=== PATIENT | male | born 1985 | race American Indian/Alaskan Native ===

== ENCOUNTER 2017-05-15 09:58 | Emergency (ER) | payer SELFPAY ==
[2017-05-15 10:50] VITALS: BP 163/109
[2017-05-15] MEDS ORDERED: TORADOL IM ONE (11:01)
[2017-05-15] MEDS ORDERED: TORADOL ONE (11:01)
== END 2017-05-15 11:15 | disposition left against medical advice (07) ==
LOC: ED 09:58
DX: R10.9 Unspecified abdominal pain (principal); Z53.21 Procedure and treatment not carried out due to patient leaving prior to being seen by health care provider
CPT/HCPCS: J1885

== ENCOUNTER 2017-06-14 03:53 | Emergency (ER) | payer OTHER ==
[2017-06-14] MEDS ORDERED: TORADOL IV ONE (04:18)
[2017-06-14] MEDS ORDERED: ZOFRAN IV ONE ×2 (04:18→06:16)
--- NOTE | 2017-06-14 05:26 | Cat Scan Report ---
FINAL REPORT PROCEDURE: CT ABDOMEN PELVIS WO CON TECHNIQUE: Computerized axial tomography of the abdomen and pelvis was performed without intravenous contrast. This study is performed without intravascular contrast material and its sensitivity for abdominal and pelvic pathology, including neoplasms, inflammation, abscess, free fluid, thrombosis, arterial dissection and infarction, is reduced compared with a contrast enhanced study. HISTORY: flank pain/frequent kidney stones COMPARISON: No prior studies are available for comparison. FINDINGS: Visualized lower thorax: No significant abnormality. Liver: Normal size and attenuation. Spleen: Normal size and attenuation. Gallbladder and biliary system: Normal. Pancreas: Normal. Adrenals: Normal. Kidneys: Both kidneys have normal size. Mild left hydronephrosis and hydroureter down to a 4 millimeter stone in the mid left ureter. Bilateral renal calculi measuring between 1 and 5 millimeters are noted. The right collecting system is normal.. GI tract: No obstruction, no ileus or enteritis. The cecum, appendix and colon are normal. Mild diverticular changes in the colon.. Lymph nodes and mesentery: Normal. Vasculature: Normal. Bladder: Normal. Reproductive organs: Normal. Peritoneum: No free fluid. Musculoskeletal structures: No significant abnormality. Other: None. IMPRESSION: Mild left hydronephrosis and hydroureter down to a 4 millimeter stone in the mid left ureter. Bilateral renal calculi are identified..
[2017-06-14] MEDS ORDERED: MORPHINE ONE (06:06)
[2017-06-14] MEDS ORDERED: NACL 0.9% 1000 ML 1,000 ML ONE (06:06)
[2017-06-14] MEDS ORDERED: MORPHINE IV ONE (06:16)
[2017-06-14] MEDS ORDERED: NACL 0.9% 1000 ML 1,000 ML IV ONE ×2 (06:16→07:57)
[2017-06-14] MEDS ORDERED: DILAUDID IV ONE (06:53)
--- NOTE | 2017-06-14 06:58 | Emergency Department Report ---
HPI - General Chief Complaint: Abdominal Pain Time Seen by Provider: 06/14/17 06:46 - HPI HPI: 31-year-old Afro-[place] male presents to the emergency department with complaint of left-sided back and flank pain this been going on since this morning that he believes is a kidney stone. He has a history of frequent kidney stones but has never required lithotripsy or a stent placed. He has not taken anything for his symptoms prior to presentation. He has some slight nausea secondary to the intense pain but has not had any vomiting. No fever, dysuria, discharge. He does not have a primary care physician or urologist. No recent travel or sick contacts at home. ED Past Medical Hx - Past Medical History Previous Medical History?: Yes Hx Kidney Stones: Yes - Surgical History Past Surgical History?: No - Social History Smoking Status: Never Smoker Substance Use Type: None - Medications Home Medications: Home Medications Medication Instructions Recorded Confirmed Last Taken Type Tamsulosin [Flomax] 0.4 mg PO QDAY #5 cap 06/14/17 Unknown Rx oxyCODONE /ACETAMINOPHEN [Percocet 1 tab PO Q6HR PRN #10 tablet 06/14/17 Unknown Rx 5/325] ED Review of Systems ROS: Stated complaint: KIDNEY STONE Other details as noted in HPI Comment: All other systems reviewed and negative Constitutional: denies: chills, fever Eyes: denies: eye pain, eye discharge, vision change ENT: denies: ear pain, throat pain Respiratory: denies: cough, shortness of breath, wheezing Cardiovascular: denies: chest pain, palpitations Gastrointestinal: abdominal pain (flank pain), nausea. denies: vomiting Genitourinary: denies: dysuria, discharge Musculoskeletal: back pain. denies: arthralgia Skin: denies: rash, lesions Neurological: denies: headache, weakness, paresthesias Physical Exam - Physical Exam Vital Signs: Vital Signs 06/14/17 06/14/17 04:13 04:32 Temperature 98.0 F Pulse Rate 62 Respiratory 18 20 Rate Blood Pressure 169/110 O2 Sat by Pulse 100 Oximetry Physical Exam: GENERAL: The patient is well-developed well-nourished. HENT: Normocephalic. Atraumatic. Patient has moist mucous membranes. EYES: Extraocular motions are intact. Pupils equal reactive to light bilaterally. NECK: Supple. Trachea is midline. CHEST/LUNGS: Clear to auscultation. There is no respiratory distress noted. HEART/CARDIOVASCULAR: Regular. There is no tachycardia. There is no gallop rub or murmur. ABDOMEN: Abdomen is soft. Unable to reproduce tenderness to palpation. No guarding or rebound tenderness. Patient has normal bowel sounds. There is no abdominal distention. SKIN: Skin is warm and dry. NEURO: The patient is awake, alert, and oriented. The patient is cooperative. The patient has no focal neurologic deficits. The patient has normal speech and gait. MUSCULOSKELETAL: There is no tenderness or deformity. There is no limitation range of motion. There is no evidence of acute injury. BACK: Positive left-sided CVA tenderness to palpation. No midline tenderness palpation or deformity or step-off. ED Course Vital Signs 06/14/17 06/14/17 04:13 04:32 Temperature 98.0 F Pulse Rate 62 Respiratory 18 20 Rate Blood Pressure 169/110 O2 Sat by Pulse 100 Oximetry ED Medical Decision Making - Radiology Data Radiology results: report reviewed CT of the abdomen and pelvis shows mild hydronephrosis and hydroureter on the left side down to a 4 mm stone in the mid left ureter. Bilateral intrarenal stones. - Medical Decision Making 31-year-old male presents with left-sided back and flank pain and history of kidney stones. CT shows a 4 mm ureterolithiasis with mild hydronephrosis. Urinalysis does not show any significant hematuria or any urinary tract infection. He has greater than a 90% chance of passing the stone. Patient was given pain medication in the emergency department and has some improvement. Vital signs stable. His records. He was discharged home with a strainer, Flomax, pain medication and a referral for urology. He will return to the ER with any development of fever, intractable vomiting, worsening of his pain, inability to pass the stone or any acute distress. - Differential Diagnosis nephrolithiasis, hydronephrosis, pyelonephritis, UTI Critical Care Time: No Critical care attestation.: If time is entered above; I have spent that time in minutes in the direct care of this critically ill patient, excluding procedure time. ED Disposition Clinical Impression: Kidney stone on left side, Ureterolithiasis, Flank pain Disposition: - TO HOME OR SELFCARE Is pt being admited?: No Condition: Stable Instructions: Kidney Stones (ED), Renal Colic (ED), How to Strain Your Urine ( ED) Additional Instructions: Please strain your urine to see if you can catch the kidney stone. I have given you a referral for a local urologist, Dr. Villa, to follow up regarding your kidney stone. Return to the emergency department with any intractable vomiting, development of fever, or inability to pass the stone in the next few days. You have been prescribed a medication that is sedating and therefore should not be taken prior to driving, working, and responsible for children and in no way should be mixed with alcohol of any quantity. Prescriptions: oxyCODONE /ACETAMINOPHEN [Percocet 5/325] 1 tab PO Q6HR PRN #10 tablet PRN Reason: Pain Tamsulosin [Flomax] 0.4 mg PO QDAY #5 cap Referrals: PRIMARY CARE, [Primary Care Provider] - 3-5 Days CHLOE VILLA MD [Staff Physician] - 3-5 Days Time of Disposition: 08:34
[2017-06-14 07:34] VITALS: BP 137/84
[2017-06-14 08:10] LABS: Bilirubin,Urine NEG (Negative); Blood,Urine LG (Negative); Ketones,Urine NEG (Negative); Leukocyte Esterase,Urine NEG (Negative); Mucus,Urine FEW /HPF; Nitrite,Urine NEG (Negative); Protein,Urine <15 mg/dL mg/dL (Negative); Urobilinogen,Urine < 2.0 mg/dL (<2.0)
[2017-06-14 08:11] LABS: RBC,Urine < 1.0 /HPF (0.0-6.0)
== END 2017-06-14 08:53 | disposition home or self-care (01) ==
LOC: ED 03:53
DX: N21.1 Calculus in urethra (principal)
CPT/HCPCS: 74176; 81001; 96361; 96374; 96375; 96376; 99284; J1170; J1885; J2270; J2405; J7030

== ENCOUNTER 2021-06-24 22:32 | Emergency (ER) | payer SELFPAY | END 2021-06-24 23:30 | disposition left against medical advice (07) | LOC: ED 22:32 | DX: N20.0 Calculus of kidney (principal); Z53.21 Procedure and treatment not carried out due to patient leaving prior to being seen by health care provider ==